=== PATIENT | male | born 1980 | race Two or more races ===

== ENCOUNTER 2019-05-03 00:08 | Emergency (ER) | payer SELFPAY ==
[~2019-05-03] VITALS: Ht 185.4 cm; Wt 95.3 kg
--- NOTE | 2019-05-03 00:20 | NUR ---
ED Nurse Note: Patient walked in to ER c/o allergic reaction. Stated that took some kind of suplement and started had allergic reaction. AAO x4, VSS at this time, skin is dry warm to touch.
[2019-05-03 00:25] VITALS: BP 149/76
[2019-05-03] MEDS ORDERED: DiphenhydrAMINE 50mg/ml Inj IVP ONE (00:30)
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
[2019-05-03 01:11] LABS: BASOPHILS % (AUTO) 1.1 % (0.0-2.0); EOSINOPHILS % (AUTO) 0.3 % (0.0-3.0); HEMOGLOBIN 17.4 G/DL (14.2-18.0); LYMPHOCYTES % (AUTO) 28.7 % (20.0-45.0); MEAN CORPUSCULAR VOLUME 89 FL (80-99); MONOCYTES % (AUTO) 5.8 % (1.0-10.0); PLATELET COUNT 326 K/UL (150-450); RED CELL DISTRIBUTION WIDTH 9.7 % (11.6-14.8); WHITE BLOOD COUNT 8.3 K/UL (4.8-10.8)
[2019-05-03 01:25] LABS: ANION GAP 8 mmol/L (5-15); BLOOD UREA NITROGEN 28 mg/dL (7-18); CALCIUM 9.3 MG/DL (8.5-10.1); CARBON DIOXIDE 27 MMOL/L (21-32); CHLORIDE 105 MMOL/L (98-107); CREATININE 1.4 MG/DL (0.55-1.30); POTASSIUM 3.7 MMOL/L (3.5-5.1); SODIUM 140 MMOL/L (136-145)
[2019-05-03 01:32] LABS: INR 1.1 (0.9-1.1)
[2019-05-03 01:41] LABS: ALANINE AMINOTRANSFERASE 47 U/L (12-78); ALBUMIN 4.1 G/DL (3.4-5.0); ALBUMIN/GLOBULIN RATIO 1.1 (1.0-2.7); ALKALINE PHOSPHATASE 72 U/L (46-116); ASPARTATE AMINO TRANSFERASE 57 U/L (15-37); BILIRUBIN,TOTAL 1.2 MG/DL (0.2-1.0); CREATINE KINASE 1493 U/L (26-308)
[2019-05-03 01:52] LABS: BILIRUBIN,DIRECT 0.3 MG/DL (0.0-0.3)
--- NOTE | 2019-05-03 02:20 | Diagnostic Imaging Report ---
EXAM: XR Chest, 1 View CLINICAL HISTORY: DYSPNEA TECHNIQUE: Frontal view of the chest. COMPARISON: No relevant prior studies available. FINDINGS: Lungs: Unremarkable. No consolidation. Pleural space: Unremarkable. No pneumothorax. Heart: Unremarkable. No cardiomegaly. Mediastinum: Unremarkable. Bones/joints: Unremarkable. IMPRESSION: Normal chest x-ray.
[2019-05-03 02:27] VITALS: BP 136/85
--- NOTE | 2019-05-03 02:29 | NUR ---
ED Nurse Note: Patient leave against medical advice. As soon as patient was asked to give sample of urine, he started to be aggresive, anxious. Dr. Hull explained all risks to the patient. Patient AAO x4, VSS at this time, skin is dry warm to touch.
--- NOTE | 2019-05-05 11:08 | Cardiology Report ---
APPROVED REPORT EKG Measurement Heart [id number] Ectopic atrial rhythm Normal ECG
== END 2019-05-03 02:29 | disposition left against medical advice (07) ==
LOC: EMR 00:38
DX: R07.9 Chest pain, unspecified (principal); R11.0 Nausea; R06.02 Shortness of breath; R07.0 Pain in throat
CPT/HCPCS: 71045; 80053; 82248; 82550; 83880; 84484; 85025; 85610; 85730; 93005; 96374; 96375; 99284; J1200; J2405; J7040